=== PATIENT | female | born 1950 | race Caucasian/White ===

== ENCOUNTER 2017-05-09 07:27 | Day surgery (SDC) | payer BC ==
[2017-05-09] MEDS ORDERED: NS 500 ML IV 500 ML IV ONE (07:59)
[2017-05-09] MEDS ORDERED: TETRACAINE 0.5% OPHTH 1 DOSE AFFEYE ONE ×3 (08:00→10:13)
[2017-05-09] MEDS ORDERED: VIGAMOX 0.5% OPHTH 1 DOSE AFFEYE ONE ×5 (08:01→11:30)
[2017-05-09] MEDS ORDERED: VERSED ONE (08:10)
[2017-05-09] MEDS ORDERED: PROLENSA OPHTH 1 DOSE AFFEYE ONE (08:12)
[2017-05-09] MEDS ORDERED: ALPHAGAN-P OPHTH 1 DOSE AFFEYE ONE (08:13)
[2017-05-09] MEDS ORDERED: AK-DILATE 2.5% OPHTH 1 DOSE OP ONE ×3 (08:14→08:16)
[2017-05-09] MEDS ORDERED: MYDRIACIL OPHTH 1 DOSE AFFEYE ONE ×3 (08:14→08:16)
[2017-05-09] MEDS ORDERED: CYCLOGYL 1% OPHTH 1 DOSE OP ONE ×3 (08:14→08:16)
[2017-05-09] MEDS ORDERED: VERSED IVP ONE (10:44)
[2017-05-09] MEDS ORDERED: ALCAINE or OPHTHETIC 1 DOSE AFFEYE ONE (10:44)
[2017-05-09] MEDS ORDERED: AK-DILATE 10% OPHTH 1 DOSE AFFEYE ONE (10:47)
[2017-05-09] MEDS ORDERED: BETADINE OPHTH SOLN 5% EACHEYE ONE (10:52)
[2017-05-09] MEDS ORDERED: XYLOCAINE-MPF 1% IJ ONE ×2 (10:59→11:14)
[2017-05-09] MEDS ORDERED: DUOVISC IO ONE ×2 (10:59→11:14)
[2017-05-09] MEDS ORDERED: ADRENALINE CHL INJ IJ ONE ×2 (10:59→11:14)
[2017-05-09] MEDS ORDERED: BSS OPHTH (PLAIN) 500 ML with VANCOMYCIN HCL 500 MG VIAL 25 MG, ADRENALINE CHL INJ 1 MG IR ONE ×6 (11:01)
[2017-05-09 11:51] VITALS: BP 131/78
== END 2017-05-09 11:55 | disposition home or self-care (01) ==
LOC: SURG1 07:27
PROVIDERS: ATTEND Ophthalmology
PROC: 08RK3JZ Replacement of Left Lens with Synthetic Substitute, Percutaneous Approach (ICD-10-PCS; principal; 2017-05-09 10:30)
PROC: 08DK3ZZ Extraction of Left Lens, Percutaneous Approach (ICD-10-PCS; principal; 2017-05-09 10:30)
DX: H25.12 Age-related nuclear cataract, left eye (principal); H25.012 Cortical age-related cataract, left eye; H52.222 Regular astigmatism, left eye
CPT/HCPCS: V2797; A4217; J0170; J2250; J3370

== ENCOUNTER 2017-07-18 06:55 | Day surgery (SDC) | payer BC, OTHER ==
[2017-07-18] MEDS ORDERED: NS 500 ML IV 500 ML IV ONE (07:14)
[2017-07-18] MEDS ORDERED: TETRACAINE 0.5% OPHTH 1 DOSE AFFEYE ONE ×7 (07:15→10:48)
[2017-07-18] MEDS ORDERED: VIGAMOX 0.5% OPHTH 1 DOSE AFFEYE ONE ×5 (07:20→10:59)
[2017-07-18] MEDS ORDERED: PROLENSA OPHTH 1 DOSE AFFEYE ONE (07:31)
[2017-07-18] MEDS ORDERED: ALPHAGAN-P OPHTH 1 DOSE AFFEYE ONE (07:32)
[2017-07-18] MEDS ORDERED: CYCLOGYL 1% OPHTH 1 DOSE OP ONE ×3 (07:33→07:35)
[2017-07-18] MEDS ORDERED: AK-DILATE 2.5% OPHTH 1 DOSE OP ONE ×3 (07:33→07:35)
[2017-07-18] MEDS ORDERED: MYDRIACIL OPHTH 1 DOSE AFFEYE ONE ×3 (07:33→07:35)
[2017-07-18] MEDS: VERSED ONE ×2 (10:05→10:14)
[2017-07-18] MEDS ORDERED: AK-DILATE 10% OPHTH 1 DOSE AFFEYE ONE (10:18)
[2017-07-18] MEDS ORDERED: BETADINE OPHTH SOLN 5% EACHEYE ONE (10:28)
[2017-07-18] MEDS ORDERED: DUOVISC IO ONE ×2 (10:42→10:48)
[2017-07-18] MEDS ORDERED: ADRENALINE CHL INJ IJ ONE ×2 (10:42→10:48)
[2017-07-18] MEDS ORDERED: XYLOCAINE-MPF 1% IJ ONE ×2 (10:42→10:48)
[2017-07-18] MEDS ORDERED: BSS OPHTH (PLAIN) 500 ML with VANCOMYCIN HCL 500 MG VIAL 25 MG, ADRENALINE CHL INJ 1 MG IR ONE ×6 (10:42)
[2017-07-18 11:32] VITALS: BP 110/60
[2017-07-18] MEDS ORDERED: DIPRIVAN VIAL ONE (15:52)
== END 2017-07-18 11:25 | disposition home or self-care (01) ==
LOC: SURG1 06:55
PROVIDERS: ATTEND Ophthalmology
PROC: 08DJ3ZZ Extraction of Right Lens, Percutaneous Approach (ICD-10-PCS; principal; 2017-07-18 09:00)
PROC: 08RJ3JZ Replacement of Right Lens with Synthetic Substitute, Percutaneous Approach (ICD-10-PCS; principal; 2017-07-18 09:00)
DX: H25.11 Age-related nuclear cataract, right eye (principal); H25.011 Cortical age-related cataract, right eye; H52.221 Regular astigmatism, right eye
CPT/HCPCS: V2797; A4217; J0170; J2250; J3370; J3490